=== PATIENT | male | born 1975 | race Caucasian/White ===

== ENCOUNTER 2023-02-26 20:10 | Emergency (ER) | payer BC ==
[2023-02-26] MEDS ORDERED: Lidocaine 1% (PF) 30 ML VIAL ONE (20:22)
[2023-02-26] MEDS ORDERED: Bacitracin 1 PK ONE (21:21)
== END 2023-02-26 21:36 | disposition home or self-care (01) ==
LOC: NAV ERS 20:10
DX: S67.01XA Crushing injury of right thumb, initial encounter (principal); S61.011A Laceration without foreign body of right thumb without damage to nail, initial encounter; F17.210 Nicotine dependence, cigarettes, uncomplicated; W22.8XXA Striking against or struck by other objects, initial encounter
CPT/HCPCS: 12002; J2001